=== PATIENT | female | born 2000 | race Caucasian/White ===

== ENCOUNTER 2022-08-11 10:59 | Emergency (ER) | payer OTHER ==
[~2022-08-11] VITALS: Ht 157.5 cm; Wt 78.0 kg
[2022-08-11 11:02] VITALS: BP 142/78
[2022-08-11] MEDS ORDERED: ONDANSETRON 4MG ODT PO ONE (11:45)
[2022-08-11] MEDS ORDERED: ACETAMINOPHEN 325MG TABLET PO ONE (11:45)
[2022-08-11] MEDS ORDERED: IBUP-2030 MT (13:01)
== END 2022-08-11 13:37 | disposition home or self-care (01) ==
LOC: ER 10:59
DX: S09.90XA Unspecified injury of head, initial encounter (principal); Y08.89XA Assault by other specified means, initial encounter; Y93.89 Activity, other specified; Y92.89 Other specified places as the place of occurrence of the external cause; Y99.8 Other external cause status
CPT/HCPCS: 70450; 99284; Q0162

== ENCOUNTER 2023-10-23 03:33 | Emergency (ER) | payer OTHER ==
[~2023-10-23] VITALS: Ht 152.4 cm; Wt 82.0 kg
[~2023-10-23 03:33] MED LIST: IBUP-2030 MT
[2023-10-23 03:37] VITALS: O2SAT 100
[2023-10-23 05:46] VITALS: BP 112/70; PULSE 86; RESP 19; TEMP 98.4
== END 2023-10-23 05:38 | disposition home or self-care (01) ==
LOC: ER 03:48
DX: S09.90XA Unspecified injury of head, initial encounter (principal); S90.01XA Contusion of right ankle, initial encounter; X58.XXXA Exposure to other specified factors, initial encounter; Y93.89 Activity, other specified; Y92.89 Other specified places as the place of occurrence of the external cause; Y99.8 Other external cause status
CPT/HCPCS: 73600; 99284